=== PATIENT | male | born 1940 | race Hispanic/Latino ===

== ENCOUNTER 2018-04-01 14:39 | Emergency (ER) | payer MEDICARE, MEDICAID ==
[2018-04-01 14:40] VITALS: PULSE 120; BMI 15.3
[2018-04-01 14:44] VITALS: BP 133/65; PULSE 91; RESP 16; TEMP 97.6; O2SAT 98
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
[2018-04-01 17:16] LABS: BASO # 0.1 K/uL (0.0-0.2); BASO % 0.6 % (0.0-2.0); EOS % 0.5 % (0.0-4.0); HEMOGLOBIN 10.4 g/dL (12.0-18.0); LYMPH # 1.6 K/uL (1.0-4.3); LYMPH % 16.5 % (20.0-40.0); MEAN CELL VOLUME 91.8 fl (80.0-94.0); MEAN CORPUSCULAR HEMOGLOBIN 30.4 pg (27.0-31.0); MEAN CORPUSCULAR HGB CONC 33.1 g/dL (33.0-37.0); MEAN PLATELET VOLUME 7.3 fl (7.2-11.7); MONO # 0.7 K/uL (0.0-0.8); MONO % 7.1 % (0.0-10.0); NEUT # 7.2 K/uL (1.8-7.0); NEUT % 75.3 % (50.0-75.0); RBC 3.42 Mil/uL (4.40-5.90); RED CELL DISTRIBUTION WIDTH 16.6 % (11.5-14.5); WHITE BLOOD COUNT 9.5 K/uL (4.8-10.8)
[2018-04-01 17:45] LABS: BLOOD UREA NITROGEN 39 mg/dl (9-20); CALCIUM 10.5 mg/dL (8.4-10.2); GFR NON-AFRICAN AMERICAN 59
--- NOTE | 2018-04-01 17:56 | RAD ---
Date of service: 04/01/2018 PROCEDURE: Bilateral Feet Radiographs. HISTORY: trauma to left toes, chronic pain right foot COMPARISON: None. FINDINGS: BONES: Right Foot: Normal. No fracture. Left Foot: Normal. No fracture. JOINTS: Right Foot: Hammertoe deformities. Left Foot: Symmetrical hammertoe deformities. SOFT TISSUES: Right Foot: Normal. Left Foot: Soft tissue swelling 2nd digit. OTHER FINDINGS: None. IMPRESSION: Soft tissue swelling without acute articular or osseous abnormality.
== END 2018-04-01 21:55 ==
LOC: H.ER 14:39
DX: M79.672 Pain in left foot (principal); E03.9 Hypothyroidism, unspecified; G89.29 Other chronic pain; I50.9 Heart failure, unspecified; Z79.01 Long term (current) use of anticoagulants

== ENCOUNTER 2018-05-17 12:59 | Emergency (ER) | payer MEDICARE, MEDICAID ==
[2018-05-17 12:59] VITALS: PULSE 120; BMI 15.3
[2018-05-17 13:20] VITALS: RESP 18
[2018-05-17 14:19] LABS: BASO % 0.5 % (0.0-2.0); EOS # 0.1 K/uL (0.0-0.7); EOS % 1.1 % (0.0-4.0); HEMOGLOBIN 10.3 g/dL (12.0-18.0); LYMPH # 0.8 K/uL (1.0-4.3); LYMPH % 9.8 % (20.0-40.0); MEAN CELL VOLUME 90.9 fl (80.0-94.0); MEAN CORPUSCULAR HEMOGLOBIN 30.2 pg (27.0-31.0); MEAN CORPUSCULAR HGB CONC 33.2 g/dL (33.0-37.0); MEAN PLATELET VOLUME 6.9 fl (7.2-11.7); MONO # 0.7 K/uL (0.0-0.8); MONO % 7.9 % (0.0-10.0); NEUT # 6.9 K/uL (1.8-7.0); NEUT % 80.7 % (50.0-75.0); PLATELET COUNT 367 K/uL (130-400); RBC 3.42 Mil/uL (4.40-5.90); RED CELL DISTRIBUTION WIDTH 16.4 % (11.5-14.5); WHITE BLOOD COUNT 8.5 K/uL (4.8-10.8)
[2018-05-17 14:28] LABS: ALBUMIN 3.7 g/dL (3.5-5.0); CALCIUM 10.3 mg/dL (8.4-10.2)
[2018-05-17 14:54] LABS: ANISOCYTOSIS SLIGHT; BANDS 1 % (0-2); HYPOCHROMIC SLIGHT; LYMPHOCYTE 12 % (20-50); MONOCYTE 3 % (0-10); NEUTROPHIL 84 % (42-75); PLATELET ESTIMATE NORMAL (NORMAL); TOTAL CELLS COUNTED 100
--- NOTE | 2018-05-17 15:06 | RAD ---
Date of service: 05/17/2018 PROCEDURE: Left Foot Radiographs. HISTORY: Gangrene 2nd digit COMPARISON: Correlation made with prior radiographs of the left foot 04/01/2018 FINDINGS: BONES: Redemonstrated is a linear obliquely oriented lucency traversing the base medial aspect proximal phalanx 1st toe which extends into the joint space margin. This may represent an old unfused fracture deformity and appears unchanged from prior exam. No evidence of acute displaced fracture nor dislocation. No definitive cortical destructive changes seen at this time to suggest osteomyelitis of however early osteomyelitis cannot be completely excluded. No subcutaneous emphysema. If further evaluation is required, consider follow-up MRI. Again noted are small posterior and plantar surface calcaneal enthesophytes former larger than latter. JOINTS: Mild multi articular degenerative osteoarthritis most notably affecting the 1st MTP joint. SOFT TISSUES: As above OTHER FINDINGS: None. IMPRESSION: Redemonstrated is a linear obliquely oriented lucency traversing the base medial aspect proximal phalanx 1st toe which extends into the joint space margin. This may represent an old unfused fracture deformity and appears unchanged from prior exam. No evidence of acute displaced fracture nor dislocation. No definitive cortical destructive changes seen at this time to suggest osteomyelitis of however early osteomyelitis cannot be completely excluded. No subcutaneous emphysema. If further evaluation is required, consider follow-up MRI.
--- NOTE | 2018-05-17 15:43 | ED PDOC ---
Lower Extremity Pain/Injury Time Seen by Provider: 05/17/18 13:17 Chief Complaint (Nursing): Lower Extremity Problem/Injury Chief Complaint (Provider): Lower Extremity Problem/Injury History Per: Patient History/Exam Limitations: no limitations Onset/Duration Of Symptoms: Persistent Current Symptoms Are (Timing): Still Present Additional Complaint(s): 77 year old male with pmHx of HTN, CHF, and PE, is referred to ED from [facility] for an evaluation of left foot pain associated with gangrene of the second toe. Patient is a poor historian, although, appears alert and oriented. Additional Hx obtained from recent admission at [facility] for similar sym ptoms, however, patient refused any intervention during hospital stay. Patient returns to ED today as his pain remains persistent. PCP: Dr. 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; BACK NECK), Atrial Fibrillation, CHF, COPD (emphysema (per CT/chest)), HTN, Hypothyroidism, Pulmonary Embolism Denies: Chronic Kidney Disease - Surgical History Surgical History: Back Surgery, Tonsillectomy - Family History Family History: States: Unknown Family Hx - Immunization History Hx Tetanus Toxoid Vaccination: No Hx Influenza Vaccination: No Hx Pneumococcal Vaccination: No - Home Medications Home Medications: Ambulatory Orders Medication Instructions Recorded RX: Acetaminophen [Tylenol 325mg 650 mg PO Q4 PRN #0 tab 12/26/15 tab] RX: Albuterol/Ipratropium [Duoneb 3 ml INH Q6 PRN 08/13/17 3 mg/0.5 mg (3 ml) UD] RX: Oxycodone HCl 10 mg PO Q4H PRN 05/04/18 RX: Docusate [Colace] 100 mg PO DAILY cap 05/11/18 RX: Famotidine [Pepcid] 20 mg PO DAILY tab 05/11/18 RX: Gabapentin [Neurontin] 100 mg PO BID cap 05/11/18 RX: Lactobacillus Acidophilus 1 cap PO BID cap 05/11/18 [Lactobacillus] RX: Levothyroxine [Synthroid] 75 mcg PO DAILY@0630 tab 05/11/18 RX: Multivitamins [Hexavitamin] 1 tab PO DAILY tab 05/11/18 RX: Spironolactone [Aldactone] 50 mg PO DAILY tab 05/11/18 Acetaminophen [Tylenol 325mg tab] 650 mg PO Q4 PRN 05/17/18 Mag Hydrox/Aluminum Hyd/Simeth 30 ml PO Q4 PRN 05/17/18 [Maalox Advanced Suspension] RX: Magnesium Hydroxide [Milk Of 30 ml PO HS PRN 05/17/18 Magnesia] RX: Warfarin [Coumadin] 2 mg PO QPM 05/17/18 - Allergies Allergies/Adverse Reactions: Allergies Allergy/AdvReac Type Severity Reaction Status Date / Time No Known Allergies Allergy Verified 04/01/18 14:41 Review of Systems ROS Statement: Except As Marked, All Systems Reviewed And Found Negative Musculoskeletal: Positive for: Foot Pain (left-side, 2nd toe with gangrene) Physical Exam - Reviewed Nursing Documentation Reviewed: Yes Vital Signs Reviewed: Yes - Physical Exam Appears: Positive for: No Acute Distress Pulses-Radial (L): 1+ Pulses-Radial (R): 1+ Extremity: Positive for: Other (bilateral LE with chronic-appearing erythema; left foot, second toe with black eschar. cool to touch) Neurologic/Psych: Positive for: Alert, Oriented (x3). Negative for: Motor/Sensory Deficits, Aphasia - Laboratory Results Result Diagrams: 05/17/18 14:16 05/17/18 14:16 Lab Results: Total Bilirubin 0.5 mg/dl (0.2-1.3) 05/17/18 14:16 AST 39 U/L (17-59) 05/17/18 14:16 ALT 19 U/L (21-72) L D 05/17/18 14:16 Alkaline Phosphatase 87 U/L (38-126) 05/17/18 14:16 Total Protein 7.6 G/DL (6.3-8.2) 05/17/18 14:16 Albumin 3.7 g/dL (3.5-5.0) 05/17/18 14:16 Globulin 3.9 gm/dL (2.2-3.9) 05/17/18 14:16 Albumin/Globulin Ratio 1.0 (1.0-2.1) 05/17/18 14:16 - ECG O2 Sat by Pulse Oximetry: 98 (RA) Pulse Ox Interpretation: Normal Medical Decision Making Medical Decision Making: Time: 1316 Initial Plan: * Labs * XR left foot Time: 1503 --XR left foot FINDINGS: BONES: Redemonstrated is a linear obliquely oriented lucency traversing the base medial aspect proximal phalanx 1st toe which extends into the joint space margin. This may represent an old unfused fracture deformity and appears unchanged from prior exam. No evidence of acute displaced fracture nor dislocation. No definitive cortical destructive changes seen at this time to suggest osteomyelitis of however early osteomyelitis cannot be completely excluded. No subcutaneous emphysema. If further evaluation is required, consider follow-up MRI. Again noted are small posterior and plantar surface calcaneal enthesophytes former larger than latter. JOINTS: Mild multi articular degenerative osteoarthritis most notably affecting the 1st MTP joint. SOFT TISSUES: As above OTHER FINDINGS: None. IMPRESSION: Redemonstrated is a linear obliquely oriented lucency traversing the base medial aspect proximal phalanx 1st toe which extends into the joint space margin. This may represent an old unfused fracture deformity and appears unchanged from prior exam. No evidence of acute displaced fracture nor dislocation. No definitive cortical destructive changes seen at this time to suggest osteomyelitis of however early osteomyelitis cannot be completely excluded. No subcutaneous emphysema. If further evaluation is required, consider follow-up MRI. Time: 1510 --Labs reviewed: normal WBC. hemoglobin is stable. (-) significant clinical abnormality in chemistry. Patient evaluated by podiatry resident. Patient refuses intervention at this time. Risks and benefits discussed with patient regarding possible loss of limb and/or life secondary to infection. Patient continues to decline further treatment. Time: 154 --Provided additional opportunity for intervention of left foot, however, patient continues declines further treatment. At this time, patient is AxO, speaking in full sentences with clear speech, and demonstrates the capacity to make decisions. Patient will be returned to [facility] for further management. Scribe Attestation: Documented by Arline Arthur, acting as a scribe for Albert Marks III, DO. Provider Scribe Attestation: All medical record entries made by the Scribe were at my direction and pe rsonally dictated by me. I have reviewed the chart and agree that the record accurately reflects my personal performance of the history, physical exam, medical decision making, and the department course for this patient. I have also personally directed, reviewed, and agree with the discharge instructions and disposition. Disposition - Clinical Impression Clinical Impression: Gangrene of toe - Patient ED Disposition Is Patient to be Admitted: No Counseled Patient/Family Regarding: Studies Performed, Diagnosis - Disposition Disposition: Rehab Facility/Unit Disposition Time: 15:30 Condition: STABLE Additional Instructions: Mr Yuen was again seen by podiatric specialists in ER and refused vascular intervention for his leg/foot. There is high liklihood of worsening vascular compromise and loss of limb. Followup with PMD and vascular team as directed, return to ER for any concern. Recommend additional pain management via his nursing facility care team. Instructions: Peripheral Artery Disease and Claudication, Gangrene (DC) Forms: [employer] ([place])
--- NOTE | 2018-05-17 15:51 | CP.PCM.CON ---
History of Present Illness - History of Present Illness History of Present Illness: Podiatry consult note for Dr. Oconnor, 77 y/o male patient with significant PMHx of PAD, A.fib, CHF, COPD, HTN, hypothyroidism and pulmonary embolism seen and evaluated at bedside for left foot pain. Patient is AAOX3, and was sent from shelter. Patient was recently discharged from [facility] to [facility] for IV Abx. Patient completed his course of IV Abx, however, was sent to [place] ED today due to complaints of foot pain. At [facility] [place], patient had refused all vascular intervention At this time, he denies any overnight F/N/V/C/SOB/CP/headache. He denies any other pedal complains. Patient at this time is refusing admission and vascular intervention Review of Systems - Review of Systems All systems: reviewed and no additional remarkable complaints except Review of Systems: As per HPI Past Patient History - Infectious Disease Hx of Infectious Diseases: None - Past Medical History & Family History Past Medical History?: Yes - Past Social History Smoking Status: Light Smoker < 10 Cigarettes Daily - CARDIAC Hx Atrial Fibrillation: Yes Hx Congestive Heart Failure: Yes Hx Hypertension: Yes - PULMONARY Hx Chronic Obstructive Pulmonary Disease (COPD): Yes (emphysema (per CT/chest)) Hx Pulmonary Embolism: Yes - NEUROLOGICAL Hx Neurological Disorder: No - HEENT Hx HEENT Problems: No - RENAL Hx Chronic Kidney Disease: No - ENDOCRINE/METABOLIC Hx Hypothyroidism: Yes - HEMATOLOGICAL/ONCOLOGICAL Hx Blood Disorders: No - INTEGUMENTARY Hx Dermatological Problems: No - MUSCULOSKELETAL/RHEUMATOLOGICAL Hx Arthritis: Yes (B/L KNEE CONTRACTURES L> R; BACK NECK) - GASTROINTESTINAL Hx Gastrointestinal Disorders: No - GENITOURINARY/GYNECOLOGICAL Hx Genitourinary Disorders: No - PSYCHIATRIC Hx Psychophysiologic Disorder: No Hx Substance Use: No - SURGICAL HISTORY Hx Tonsillectomy: Yes - ANESTHESIA Hx Anesthesia: No Meds Allergies/Adverse Reactions: Allergies Allergy/AdvReac Type Severity Reaction Status Date / Time No Known Allergies Allergy Verified 04/01/18 14:41 Physical Exam - Constitutional Appears: Well, Non-toxic, No Acute Distress - Head Exam Head Exam: ATRAUMATIC, NORMOCEPHALIC - Extremities Exam Additional comments: Bilateral LE exam: VASC: DP pulses are non-palpable, PT pulses are non-palpable, Cap refill time: slightly delayed at approx 6 sec, Temp gradient: warm to cool from proximal to distal, mild non-pitting edema noted localized to the left foot/ankle accompanied with erythema NEURO: Protective sensation mildly diminished DERM: Dry black eschar noted on the dorsal aspect of the left 2nd digit with necrotic changes, interdigital maceration noted in the 4th interspace on the left with medial aspect of the 5th digit fully macerated with epidermal and dermal lysis, no active drainage, no malodor, erythema extending distal to the ankle joint, no probe to bone, no tunneling, no undermining, nails are hyperkeratotic and discolored and fully attached to the nail bed except for the hallux nail, hallux nail bed exposed with necrotic changes. Skin overlying the lateral aspect of the left 5th MPJ as well as the medial aspect of the left 1st MPJ is dark colored with thin rim of erythema surrounding it. MSK: pain on palpation of the left 5th digit wound, no pain during AROM of the digits of the left foot - Neurological Exam Neurological exam: Alert, Oriented x3 - Psychiatric Exam Psychiatric exam: Normal Affect, Normal Mood Results - Vital Signs Recent Vital Signs: Last Vital Signs Temp 97.9 F 05/17/18 13:03 Pulse 115 H 05/17/18 13:03 Resp 18 05/17/18 13:03 BP 144/71 05/17/18 13:03 Pulse Ox 98 05/17/18 15:46 - Labs Result Diagrams: 05/17/18 14:16 05/17/18 14:16 Labs: Laboratory Results - last 24 hr 05/17/18 05/17/18 14:16 14:16 WBC 8.5 RBC 3.42 L Hgb 10.3 L Hct 31.1 L MCV 90.9 MCH 30.2 MCHC 33.2 RDW 16.4 H Plt Count 367 MPV 6.9 L Neut % (Auto) 80.7 H Lymph % (Auto) 9.8 L Anderson % (Auto) 7.9 Eos % (Auto) 1.1 Baso % (Auto) 0.5 Neut # (Auto) 6.9 Lymph # (Auto) 0.8 L Anderson # (Auto) 0.7 Eos # (Auto) 0.1 Baso # (Auto) 0.0 Neutrophils % (Manual) 84 H Band Neutrophils % 1 Lymphocytes % (Manual) 12 L Monocytes % (Manual) 3 Platelet Estimate Normal Hypochromasia (manual) Slight Anisocytosis (manual) Slight Sodium 136 Potassium 4.7 Chloride 96 L Carbon Dioxide 27 Anion Gap 18 BUN 21 H Creatinine 1.4 Est GFR ( Amer) 60 Est GFR (Non-Af Amer) 49 Random Glucose 112 H Calcium 10.3 H Total Bilirubin 0.5 AST 39 ALT 19 L D Alkaline Phosphatase 87 Total Protein 7.6 Albumin 3.7 Globulin 3.9 Albumin/Globulin Ratio 1.0 Assessment & Plan - Assessment and Plan (Free Text) Assessment: 77 year old male evaluated for left foot pain and granous changes to hallux, 2nd digit, 4th digit and lateral aspect of 5th digit Plan: Patient seen and evaluated Discussed plan with attending Dr. Oconnor Labs, vitals and charts reviewed - VSS, absent leukocytosis X-rays reviewed: no acute fractures or dislocations, no soft tissue emphysema, no evidence of OM Wound culture (05/05/18): E.Coli; Enterococcus Faecalis Patient was seen by vascular at [facility], patient underwent abdominal angiography at that time Patient refused any surgical intervention from vascular team Patient was offered vascular intervention at this time in ED, however, patient has refused any vascular intervention and states he does not want an amputation Patient wounds were cleaned with saline and dressed with xeroform, DSD Patient to WBAT in surgical shoe bilaterally Patient to be transferred back to [facility] for continued IV Abx Patient advised to come back to the hospital if pain worsens and if patient is agreeable to surgical intervention Patient demonstrated verbal understanding and all questions were answered No plan for surgical intervention from podiatry standpoint at this time - will treat conservatively Podiatry to follow up the patient while in-house
[2018-05-17 16:59] VITALS: BP 138/67; PULSE 92; TEMP 98
[2018-05-20 07:53] VITALS: O2SAT 98
== END 2018-05-17 16:54 | disposition home or self-care (01) ==
LOC: H.ER 12:59
DX: I96 Gangrene, not elsewhere classified (principal); F17.210 Nicotine dependence, cigarettes, uncomplicated; I11.0 Hypertensive heart disease with heart failure; J43.9 Emphysema, unspecified; J44.9 Chronic obstructive pulmonary disease, unspecified; Z79.01 Long term (current) use of anticoagulants; Z86.711 Personal history of pulmonary embolism; E03.9 Hypothyroidism, unspecified